=== PATIENT | female | born 1955 | race Caucasian/White ===

== ENCOUNTER → 2016-11-29 | Outpatient (CLI) | payer OTHER ==
[~2016-11-29] MED LIST: ASPIR-TRIN325 MG PO; AUGMENTIN TAB875 MG PO; CLARITIN10 M2 PO; ELAVIL 10 MG TA10 MG PO; ENSURE ORIGINA237 ML PO; FOLIC ACID1 MG PO; HUMIRA PED40 MG/0.8 INJ; LIPITOR20 MG PO; LORTAB 5-325 M1 EACH PO; METHOTREXATE2.5 MG PO; NEURONTIN 400400 MG PO; PLAQUENIL 200200 MG PO; PREMARIN1.25 MG PO; PROZAC 10 MG CA10 MG PO; RESTASIS 0.05%1 EACH OP; VISTARIL 25 MG25 MG PO; ZANAFLEX4 M1 PO
== END ==
LOC: EMI 11-28 11:15
DX: M47.817 Spondylosis without myelopathy or radiculopathy, lumbosacral region (principal); M99.73 Connective tissue and disc stenosis of intervertebral foramina of lumbar region; M99.74 Connective tissue and disc stenosis of intervertebral foramina of sacral region; M48.06 Spinal stenosis, lumbar region
CPT/HCPCS: 72148

== ENCOUNTER → 2020-08-21 | Outpatient (CLI) | payer OTHER | LOC: KOH-I 12:59 | DX: M25.512 Pain in left shoulder (principal); M19.012 Primary osteoarthritis, left shoulder | CPT/HCPCS: 73030 ==

== ENCOUNTER → 2021-02-19 | Outpatient (CLI) | payer OTHER | LOC: KOH-I 13:50 | DX: F17.210 Nicotine dependence, cigarettes, uncomplicated (principal) | CPT/HCPCS: 71271 ==